=== PATIENT | male | born 1990 | race Caucasian/White ===

== ENCOUNTER 2022-12-26 22:49 | Emergency (ER) | payer OTHER ==
[~2022-12-26] VITALS: Ht 188 cm; Wt 97.9 kg
[2022-12-26 23:49] LABS: HEMATOCRIT 42.4 % (42.0-52.0); HEMOGLOBIN 14.2 g/dl (13.5-17.5); MEAN CORPUSCULAR HEMOGLOBIN 28.3 pg (27.0-33.0); MEAN CORPUSCULAR HGB CONC 33.5 g/dl (32.0-36.5); MEAN CORPUSCULAR VOLUME 84.5 fl (80.0-96.0); PLATELET COUNT, AUTOMATED 345 10^3/uL (150-450); RED BLOOD COUNT 5.02 10^6/uL (4.30-6.10)
[2022-12-27 00:08] LABS: ETHYL ALCOHOL (ETHANOL) < 0.003 % (0.000-0.010)
[2022-12-27 00:09] LABS: SALICYLATE LEVEL < 3.0 MG/DL (<30)
[2022-12-27 00:10] LABS: ACETAMINOPHEN LEVEL < 2.0 UG/ML (10.0-20.0); ALBUMIN 4.3 G/DL (3.2-5.2); ALKALINE PHOSPHATASE 70 U/L (46-116); ALT/SGPT 36 U/L (7.0-40); AST/SGOT 34 U/L (<34); BILIRUBIN,DIRECT 0.7 MG/DL (<0.4); BILIRUBIN,TOTAL 1.6 MG/DL (0.3-1.2); BLOOD UREA NITROGEN 19 MG/DL (9-23); CALCIUM LEVEL 9.4 MG/DL (8.5-10.1); CARBON DIOXIDE LEVEL 25 MMOL/L (20-31); CHLORIDE LEVEL 103 MMOL/L (98-107); CREATININE FOR GFR 1.13 MG/DL (0.70-1.30); GLOMERULAR FILTRATION RATE > 60.0 (>60); GLUCOSE, FASTING 88 MG/DL (60-100); POTASSIUM SERUM 3.7 MMOL/L (3.5-5.1); SODIUM LEVEL 137 MMOL/L (136-145)
[2022-12-27 00:12] LABS: THYROID STIMULATING HORMONE 1.609 uIU/ML (0.55-4.78)
[2022-12-27] MEDS ORDERED: MIRT-10 PO (03:27)
[2022-12-27] MEDS ORDERED: BUPR1FIL3 SL (03:27)
[2022-12-27] MEDS ORDERED: BUPR150T12 PO (03:27)
[2022-12-27] MEDS ORDERED: PRAZ5CAP PO (03:27)
[2022-12-27] MEDS ORDERED: HOME MED LIST COMPLETE! XX SCH (05:35)
[2022-12-27 09:20] LABS: BARBITURATES URINE NEGATIVE (NEGATIVE); CANNABINOIDS URINE NEGATIVE (NEGATIVE); COCAINE METABOLITE URINE NEGATIVE (NEGATIVE); METHADONE URINE NEGATIVE (NEGATIVE); OPIATES URINE NEGATIVE (NEGATIVE); PHENCYCLIDINE URINE NEGATIVE (NEGATIVE)
[2022-12-27 09:22] LABS: AMPHETAMINES LEVEL URINE POSITIVE (NEGATIVE); BENZODIAZEPINES URINE POSITIVE (NEGATIVE)
[2022-12-27 18:02] VITALS: BP 146/82
== END 2022-12-27 18:05 | disposition home or self-care (01) ==
LOC: M ED 22:49
DX: F19.10 Other psychoactive substance abuse, uncomplicated (principal); F32.9 Major depressive disorder, single episode, unspecified